=== PATIENT | male | born 1990 | race Caucasian/White ===

== ENCOUNTER 2017-03-08 08:03 | Emergency (ER) | payer OTHER ==
[~2017-03-08] VITALS: Ht 193 cm; Wt 81.8 kg
[2017-03-08 08:09] VITALS: BP 133/92; PULSE 71; RESP 16; O2SAT 100
[2017-03-08] MEDS ORDERED: 0.9% Sodium Chloride 1,000 ML IV ONE (08:31)
--- NOTE | 2017-03-08 08:31 | ED.REPORT ---
HPI-Abd Pain M Under 40 Date of Service Mar 08, 2017 ED Provider: Cameron Taylor MD Pt is an otherwise healthy 27 year old male who presents to the ED complaining of LLQ abdominal pain onset this morning at 05:00 when he woke up. He c/o associated RLQ abdominal pain, back pain, and chills. He denies fever, vomiting , diarrhea, urinary symptoms, recent injury, and any other symptoms. Although the pt feels hungry, he reports that he does not want to eat due to his pain. Nursing Notes Stated Complaint: STOMACH PAIN Chief Complaint: Male Abdominal Pain Nursing Notes Reviewed: Yes Allergies: Coded Allergies: No Known Allergies (Unverified , 03/08/17) Scheduled PRN Hydrocodone-Acetaminophen 5-325 mg (Hydrocodone-Acetaminophen 5-325 mg) 1 Each Tablet 1-2 TABLET PO Q4H PRN PRN For Pain General Time Seen by MD: 08:23 Chief Complaint Abdominal pain Hx Obtained From: Patient Arrived By: Walk-in Onset Occurred: 1 - 4 hours ago Symptom Duration: Since onset Location: : LLQ: RLQ Quality: Painful Severity: Current: Moderate Severity: Maximum: Moderate Recent Healthcare: No recent doctor visit, No recent hospitalization Similar Sx Previous: No Past Medical History Past Medical History Denies Past Surgical History Bladder repair [place] teeth removal Smoking History Unknown if Ever Smoker Social History Alcohol Use: "Social" Drug Use: Denies drug use Ambulatory Status Independent Review of Systems Denies injury Constitutional: Reports: Chills, Denies: Fever GI: Reports: Abdominal pain, Denies: Diarrhea, Vomiting Male: Denies Dysuria, Denies Hematuria, Denies Incontinence, Denies Urinary frequency, Denies Urinary urgency, Denies Urination decreased, Denies Urination increased Musculoskeletal: Reports: Back pain Complete sys rev & neg: except as marked. Physical Exam Initial Vital Signs Vital Signs (First) Date Time Temp Pulse Resp B/P Pulse Ox O2 Delivery O2 Flow Rate FiO2 03/08/17 08:09 36.7 71 16 133/92 100 03/08/17 11:49 Room Air Initial VS: Reviewed Head / Eyes: Atraumatic, Normocephalic Neck: Supple, Full range of motion Extremities: Vascular intact, Neuro intact Skin: Warm, Dry, No cyanosis Neurologic: Alert, Oriented, Nonfocal Psychiatric: Mood/affect normal, Behavior normal General/Constitutional: Awake, Alert, Cooperative Respiratory / Chest: Atraumatic, Breath sounds NL, Breath sounds = bilat Cardiovascular: Heart rate NL, Regular rhythm, Heart sounds NL Abdomen: Atraumatic, Soft Left sided abdominal tenderness with guarding and rebound. Back: Atraumatic, Full range of motion Interpretation & Diagnostics Lab Results Interpretation Result Diagram: 03/08/17 0850 03/08/17 0850 Test 03/08/17 08:50 03/08/17 10:27 White Blood Count 5.6th/mm3 (3.8-10.1) Red Blood Count 5.21mil/mm3 (4.40-5.80) Hemoglobin 15.3g/dL (13.8-17.2) Hematocrit 45.0% (41.0-50.0) Mean Corpuscular Volume 86.4fL (81-100) Mean Corpuscular Hemoglobin 29.4pg (27.0-35.0) Mean Corpuscular Hemoglobin Concent 34.0% (32.0-37.0) Red Cell Distribution Width 12.3% (12.3-15.4) Platelet Count 170bil/L (150-400) Neutrophils (%) (Auto) 69.6% (40-74) Lymphocytes (%) (Auto) 23.8% (14-46) Monocytes (%) (Auto) 5.9% (4-12) Eosinophils (%) (Auto) 0.5% (0-5) Basophils (%) (Auto) 0% (0-3) Sodium Level 140mEq/L (134-144) Potassium Level 4.0mEq/L (3.5-5.2) Chloride Level 100mEq/L (97-108) Carbon Dioxide Level 26mmol/L (18-29) Blood Urea Nitrogen 15mg/dL (6-20) Creatinine 0.96mg/dL (0.76-1.27) Estimat Glomerular Filtration Rate 98mL/min (>59) Glucose Level 107mg/dL (60-99) Calcium Level 9.4mg/dL (8.5-10.1) Magnesium Level 1.7mg/dL (1.6-2.6) Total Bilirubin 0.5mg/dL (0.0-1.2) Aspartate Amino Transf (AST/SGOT) 28U/L (0-50) Alanine Aminotransferase (ALT/SGPT) 20U/L (0-44) Alkaline Phosphatase 57U/L (25-150) Total Protein 7.2g/dL (6.4-8.4) Albumin 4.5g/dL (3.4-5.0) Lipase 37U/L (13-60) Urine Color Straw (YELLOW) Urine Appearance Clear (CLEAR,HAZY) Urine pH 8.0 (5.0-8.0) Urine Specific [place] 1.010 (1.003-1.035) Urine Protein Negativemg/dL (NEG,TRACE) Urine Glucose (UA) Negativemg/dL (NEGATIVE) Urine Ketones Negativemg/dL (NEGATIVE) Urine Occult Blood Negative (NEGATIVE) Urine Nitrite Negative (NEGATIVE) Urine Bilirubin Negative (NEGATIVE) Urine Urobilinogen Normalmg/dL (NORMAL) Urine Leukocyte Esterase Negative (NEGATIVE) Urine RBC 0-2/hpf (0-2) Urine WBC 0-5/hpf (0-5) Urine Epithelial Cells Occasional/hpf (NONE-MOD) Urine Crystals None seen (NONE SEEN) Urine Bacteria None/hpf (NONE-FEW) Urine Hyaline Casts None/lpf (NONE) Urine Granular Casts None seen (NONE SEEN) Urine Waxy Casts None seen (NONE SEEN) Urine Red Blood Cell Casts None seen (NONE SEEN) Urine White Blood Cell Casts None seen (NONE SEEN) Urine Mucus None seen (None Seen) Urine Trichomonas None seen (NONE SEEN) Urine Yeast None (NONE SEEN) Urinalysis Comment None Urine Culture Reflexed Not indicated CT Abd / Pelvis Interpretation IMPRESSION: 1. No acute intra-abdominal findings. Probable normal appendix. 2. Splenic cyst. No prior comparisons are available. 3-6 month followup ultrasound is recommended to ensure stability of this finding. Dictated by: Valentine Martinez M.D. on 03/08/2017 at 9:57 Study type: Abdominal CT IV contrast Interpretation / Wet Read by: Interpret - Radiologist Re-Eval/Medical Decision Source of Hx: Old records Re-Evaluation/Progress #1: Time of Eval: 09:22 )( Re-Eval Abdomen: Soft Re-Evaluation/Progress Note: Pt rechecked. Continued to obtain pt's HPI and informed pt of plan for addressing his symptoms. All questions were addressed. Re-Evaluation/Progress #2: Time of Eval: 11:33 Re-Evaluation/Progress Note: Pt rechecked. Informed pt of plan for discharge. Pt understands and agrees with plan for discharge. F/U instructions and RTER warnings given. All questions addressed. Counseled Regarding: Diagnosis, Lab results, Need for follow-up, When/why to return to ED Patient Discharge & Departure Primary Impression: Acute abdominal pain Disposition: Home Discharge Condition All VS Reviewed: Yes Condition: Stable Patient Instructions: Acute Abdominal Pain (ED) Additional Instructions: No dangerous cause for your abdominal pain is discovered at this time. I recommend ibuprofen 800 mg every 8 hours and/or acetaminophen (Tylenol) 1000 mg every 6 hours as needed for pain. If the pain is more severe, you could take hydrocodone/APAP 5/325 one or 2 tablets every 6 hours as needed for severe pain. Be careful to limit the Tylenol dose (acetaminophen) to no more than 4000 mg daily. If your pain persists to any significant degree, follow up in the clinic on Friday. Follow-up right away for worsening symptoms including high fever, excessive vomiting or pain it is not controllable with the above medications. Referrals: Ochoa Ramsey MD Attestation Portions of this note were transcribed by Lisa Cruz. I, Dr. Taylor personally performed the history, physical exam and medical decision-making; I reviewed and confirmed the accuracy of the information in the transcribed note. Signed by: Frederick Smith, 03/08/17 and 10:50. copies to: Ochoa Ramsey MD, Kirk H MD Mar 08, 2017 08:31 Lisa Herbert Mar 08, 2017 08:42
[2017-03-08] MEDS ORDERED: Ondansetron 2 mg/mL 2 mL Inj IVPUSH PRN (08:35)
[2017-03-08] MEDS ORDERED: HYDROmorphone 0.5 mg/0.5 mL iSecure Syringe IVPUSH PRN (08:35)
[2017-03-08 09:05] LABS: BASOPHILS % (AUTO) 0 % (0-3); EOSINOPHILS % (AUTO) 0.5 % (0-5); MONOCYTES % (AUTO) 5.9 % (4-12); Mean Corpuscular Hemoglobin 29.4 pg (27.0-35.0); Mean Corpuscular Volume 86.4 fL (81-100); NEUTROPHILS % (AUTO) 69.6 % (40-74); Platelet Count 170 bil/L (150-400)
[2017-03-08 09:23] LABS: Magnesium 1.7 mg/dL (1.6-2.6)
--- NOTE | 2017-03-08 10:04 | DRSVH ---
PROCEDURE: CT ABDOMEN AND PELVIS WITH CONTRAST ([id number]) INDICATIONS: LLQ pain TECHNIQUE: After the administration of intravenous contrast, 5 mm thick sections acquired from the diaphragm to the symphysis. 5 mm coronal and sagittal reformats were acquired. For radiation dose reduction, the following was used: automated exposure control, adjustment of mA and/or kV according to patient siz e. COMPARISON: None. FINDINGS: Image quality: Excellent. ABDOMEN: Lung bases: Lung bases are clear. Heart size is normal. Solid organs: Liver and spleen are normal in size and enhancement. A low-density 15 mm diameter cyst ic lesion is present at the upper pole of the spleen. No subcentimeter low-density cystic lesions are present within the bilateral renal cortices suggesting simple renal cysts which are incompletely merry racterized. Gallbladder is unremarkable. Biliary system is non dilated. Pancreas enhances normally. No adrenal nodules. Kidneys demonstrate normal size and enhancement, without hydronephrosis. Ther e is a subcentimeter left cortical renal cystic lesion. Peritoneum and bowel: Bowel loops demonstrate normal wall thickness and caliber. There is likely par tial visualization of the appendix which demonstrates normal caliber. No free fluid or air. Nodes and vessels: No retroperitoneal or mesenteric adenopathy by size criteria. Aorta and inferior vena cava are normal in size. Miscellaneous: No ventral hernias. PELVIS: Genitourinary: Bladder wall thickness is normal. Miscellaneous: No inguinal hernias or adenopathy. Bones: No suspicious bony lesions. No vertebral body compression fractures. IMPRESSION: 1. No acute intra-abdominal findings. Probable normal appendix. 2. Splenic cyst. No prior comparisons are available. 3-6 month followup ultrasound is recommended to ensure stability of this finding. Dictated by: Valentine Martinez M.D. on 03/08/2017 at 9:57 Approved by: Valentine Martinez M.D. on 03/08/2017 at 10:02
[2017-03-08 11:07] LABS: APPEARANCE,URINE CLEAR (CLEAR,HAZY); COLOR,URINE STRAW (YELLOW); OCCULT BLOOD,URINE NEGATIVE (NEGATIVE); UROBILINOGEN,URINE NORMAL (NORMAL)
[2017-03-08] MEDS ORDERED: HYDR-4003 PO (11:38)
[2017-03-08 11:49] VITALS: BP 126/82; PULSE 82; O2SAT 100
== END 2017-03-08 11:47 | disposition home or self-care (01) ==
LOC: SED 08:03
DX: R10.32 Left lower quadrant pain (principal)
CPT/HCPCS: 36415; 74177; 80053; 81000; 83690; 83735; 85025; 96361; 96374; 96375; 99285; J1170; J1885; J2405; J7030; Q9967